=== PATIENT | female | born 1990 | race Hispanic/Latino ===

== ENCOUNTER 2024-07-15 08:02 | Emergency (ER) | payer SELFPAY ==
[2024-07-15] MEDS ORDERED: NA CHLORIDE 0.9% 1,000 ML ONE (08:27)
[2024-07-15 08:38] LABS: Absolute Lymphocytes (CBC) 1.3 K/uL (0.7-4.9); Absolute Monocytes 0.4 K/uL (0.1-1.3); Absolute Neutrophil 4.7 K/uL (1.8-8.0); Basophils % 0.7 % (0-1.3); Eosinophils % 0.6 % (0-4.4); Hematocrit 32.4 % (36.0-45.0); Hemoglobin 10.5 g/dL (12.0-15.0); Lymphocytes % 20.7 % (15.3-44.8); MCH 24.3 pg (27.0-35.0); MCHC 32.4 g/dL (32.0-36.0); MPV 7.6 fL (7.6-11.3); Monocytes % 5.9 % (3.3-12.3); Neutrophils % 72.1 % (41.7-73.7); Platelets 324 thou/uL (152-406); RBC Red Blood Cell Count 4.32 M/uL (3.86-4.86); Red Cell Distribution Width 17.3 % (12.1-15.2)
[2024-07-15 08:41] LABS: Specific Gravity 1.029 (1.005-1.030)
[2024-07-15 08:43] LABS: Specific Gravity 1.029 (1.005-1.030); Urine Bacteria <20 /HPF (<20); Urine Bilirubin NEGATIVE (Negative); Urine Blood 1+ (Negative); Urine Clarity Extremely Turbid (Clear); Urine Color Yellow (Yellow); Urine Culture Reflex Order REFLEXED; Urine Glucose NEGATIVE (Negative); Urine Ketones 1+ (Negative); Urine Microscopic Reflex YN ORDER UMIC; Urine Mucus 4+ /HPF (None Seen); Urine Nitrite NEGATIVE (Negative); Urine Protein TRACE (Negative); Urine Urobilinogen Normal (Normal); Urine WBC 20-50 /HPF (<5)
[2024-07-15 09:04] LABS: Albumin 3.6 g/dL (3.4-5.0); Albumin/Globulin Ratio 0.8 (1.1-1.8); Anion Gap 8.1 mEq/L (5.0-15.0); Bilirubin Total 0.6 mg/dL (0.2-1.0); Globulin 4.5 g/dL (2.3-3.5); Potassium 3.1 mEq/L (3.5-5.1); Protein, Total 8.1 g/dL (6.4-8.2)
--- NOTE | 2024-07-15 09:09 | RAD REPORT ---
EXAMINATION: Transvaginal OB COMPARISON: None. HISTORY: h/o torsion; possible TECHNIQUE: Real-time ultrasound was performed through the pelvis. A transvaginal scan was performed t o better visualize the intrauterine contents and adnexa. FINDINGS: The uterus is normal in size measuring 8.7 x 5.6 x 4.4 cm. Endometrial thickness is 10 mm, normal. No IUP is evident. Right ovary measures 5.8 x 3.8 cm with normal blood flow. Right ovarian cyst measuring 4 cm is presen t, benign in appearance. Left ovary measures 2.7 x 1.6 cm with normal blood flow. IMPRESSION: No evidence of IUP. In the setting of a positive hCG level, this would indicate of unknown location. Serial hCG level measurements and follow-up pelvic sonography in 7-10 days would be recommended. 4 cm right ovarian cyst, likely physiologic. Follow-up pelvic sonogram may be considered in 6-8 weeks .
--- NOTE | 2024-07-15 09:13 | EDPHYS ---
Physician Documentation [facility] Name: Katie Correa Age: 33 yrs Sex: Female : 1990 Arrival Date: 07/15/2024 Time: 08:02 Bed 19 Private MD: ED Physician Andrei Lau HPI: 07/15 08:29 This 33 yrs old Female presents to ER via Ambulatory with complaints of sp3 Abdominal Pain, Vaginal Bleeding. 08:29 33-year-old female with history of ovarian torsion with successful detorsion seen at 2 presents to the ED with lower abdominal pain, vaginal bleeding and faint positive test in March and May but not now, as well as GI/diarrhea type symptoms. She denies concerns of potential STI from long-term significant other. They do have intercourse without protection due to sterility diagnosis of her partner. Currently she denies headache, neck pain, fever, chest pain, shortness of breath, rash, bleeding anywhere else, or any other signs or symptoms on ROS at this time.. 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 - Infectious Disease History:: Denies. - Social history:: Smoking status: Patient denies any tobacco usage or history of. ROS: 08:30 Constitutional: Negative for fever, chills, and weight loss, Eyes: Negative for injury, sp3 pain, redness, and discharge, ENT: Negative for injury, pain, and discharge, Neck: Negative for injury, pain, and swelling, Cardiovascular: Negative for chest pain, palpitations, and edema, Respiratory: Negative for shortness of breath, cough, wheezing, and pleuritic chest pain, Back: Negative for injury and pain, MS/Extremity: Negative for injury and deformity, Skin: Negative for injury, rash, and discoloration, Neuro: Negative for headache, weakness, numbness, tingling, and seizure, Psych: Negative for depression, anxiety, suicide ideation, homicidal ideation, and hallucinations, Allergy/Immunology: Negative for hives, rash, and allergies, Endocrine: Negative for neck swelling, polydipsia, polyuria, polyphagia, and marked weight changes, Hematologic/Lymphatic: Negative for swollen nodes, abnormal bleeding, and unusual bruising, 08:30 All other systems are negative, Exam: 08:31 Constitutional: This is a well developed, well nourished patient who is awake, alert, sp3 and in no acute distress. Head/Face: Normocephalic, atraumatic. Eyes: Pupils equal round and reactive to light, extra-ocular motions intact. Lids and lashes normal. Conjunctiva and sclera are non-icteric and not injected. Cornea within normal limits. Periorbital areas with no swelling, redness, or edema. Neck: Trachea midline, no thyromegaly or masses palpated, and no cervical lymphadenopathy. Supple, full range of motion without nuchal rigidity, or vertebral point tenderness. No Meningismus. Chest/axilla: Normal chest wall appearance and motion. Nontender with no deformity. No lesions are appreciated. Cardiovascular: Regular rate and rhythm with a normal S1 and S2. No gallops, murmurs, or rubs. Normal PMI, no JVD. No pulse deficits. Respiratory: Lungs have equal breath sounds bilaterally, clear to auscultation and percussion. No rales, rhonchi or wheezes noted. No increased work of breathing, no retractions or nasal flaring. Back: No spinal tenderness. No costovertebral tenderness. Full range of motion. Skin: Warm, dry with normal turgor. Normal color with no rashes, no lesions, and no evidence of cellulitis. MS/ Extremity: Pulses equal, no cyanosis. Neurovascular intact. Full, normal range of motion. Neuro: Awake and alert, GCS 15, oriented to person, place, time, and situation. Cranial nerves II-XII grossly intact. Motor strength 5/5 in all extremities. Sensory grossly intact. Cerebellar exam normal. Normal gait. Psych: Awake, alert, with orientation to person, place and time. Behavior, mood, and affect are within normal limits. 08:31 Abdomen/GI: Mild lower abdominal pain to palpation without peritoneal signs, rebound or guarding., 08:31 : Current vaginal bleeding consistent with menses. Vital signs are stable., Vital Signs: 08:13 BP 119 / 69; Pulse 69; Resp 16 S; Pulse Ox 100% on R/A; Weight 63.5 kg; Height 5 ft. 2 kc6 in. (R); Pain 6/10; 08:13 Body Mass Index 25.61 (63.50 kg, 157.48 cm) kc6 08:13 Pain Scale: Adult kc6 MDM: 08:11 Medical Screening Exam initiated sp3 08:32 Data reviewed: vital signs, nurses notes, lab test result(s), radiologic studies. ED sp3 course: 33-year-old female with lower abdominal pain and vaginal bleeding. Differential diagnosis includes potential , miscarriage, menses, other GI pathology, ovarian pathology, among others. I am not highly suspicious of vascular pathology, sepsis, shock or any other critical process. Workup will include general labs including hCG, ultrasound transvaginal to differentiate. Disposition pending workup and patient course.. 09:11 ED course: hCG quant at 10. Patient likely had early and miscarriage. Urine sp3 is also dirty and we will treat with antibiotic. Follow-up with OB.. 07/15 08:11 Order name: CBC with Diff; Complete Time: 08:58 sp3 07/15 08:11 Order name: CMP; Complete Time: 09:11 sp3 07/15 08:11 Order name: Lipase; Complete Time: 09:11 sp3 07/15 08:11 Order name: Test, Urine; Complete Time: 08:58 sp3 07/15 08:11 Order name: Urinalysis w/ reflexes; Complete Time: 08:58 sp3 07/15 08:39 Order name: HCG, Quantitative; Complete Time: 09:11 EDMS 07/15 08:46 Order name: Urine Culture EDMS 07/15 08:25 Order name: US Transvaginal Ob; Complete Time: 09:11 sp3 07/15 08:11 Order name: IV Saline Lock; Complete Time: 08:27 sp3 07/15 08:11 Order name: Labs collected and sent; Complete Time: 08:27 sp3 Administered Medications: 08:34 Drug: NS 0.9% IV 1000 ml IV at 1 bolus Per protocol; to be given as a bolus over 60 kc6 minutes Route: IV; Rate: 1 bolus; Site: right antecubital; 09:20 Follow up: Response: No adverse reaction; IV Status: Completed infusion; IV Intake: kc6 500ml Disposition Summary: 07/15/24 09:12 Discharge Ordered Notes: Location: Home sp3 Condition: Stable sp3 Diagnosis - Miscarriage, spontaneous , UTI sp3 Followup: sp3 - With: Private Physician - When: Upon discharge from the Emergency Department - Reason: Continuance of care Discharge Instructions: - Discharge Summary Sheet sp3 - Miscarriage sp3 Forms: - Medication Reconciliation Form sp3 - Antibiotic Education sp3 - Prescription Opioid Use sp3 - Patient Portal Instructions sp3 - Leadership Thank You Letter sp3 Prescriptions: - Macrobid 100 mg Oral Capsule - take 1 capsule ORAL route every 12 hours for 7 days; 14 capsule; Refills: 0, sp3 Product Selection Permitted Signatures: Dispatcher [employer] EDAndrei Rodney MD MD sp3 Bernice Oreilly RN RN kc6 Corrections: (The following items were deleted from the chart) 08:37 08:26 QUANTITATIVE HCG+C.LAB.BRZ ordered. EDMS EDMS 08:58 08:28 TEST, SERUM+SC.LAB.BRZ ordered. EDMS EDMS
--- NOTE | 2024-07-15 09:13 | ER ---
Nurse's Notes [facility] Name: Katie Correa Age: 33 yrs Sex: Female : 1990 Arrival Date: 07/15/2024 Time: 08:02 Bed 19 Private MD: Diagnosis: Miscarriage, spontaneous , UTI Presentation: 07/15 08:13 Chief complaint: Patient states: she missed a period in mar., had a positive kc6 test but then started her period. reports LMP was x3 weeks ago but started with vaginal bleeding and cramping yesterday with another positive UPT. Coronavirus screen: At this time, the client does not indicate any symptoms associated with coronavirus-19. Ebola Screen: No symptoms or risks identified at this time. Initial Sepsis Screen: Does the patient meet any 2 criteria? No. Patient's initial sepsis screen is negative. Does the patient have a suspected source of infection? No. Patient's initial sepsis screen is negative. Risk Assessment: Do you want to hurt yourself or someone else? Patient reports no desire to harm self or others. Onset of symptoms was July 15, 2024. 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 - Infectious Disease History:: Denies. - Social history:: Smoking status: Patient denies any tobacco usage or history of. Screenin:16 [facility] ED Fall Risk Assessment (Adult) History of falling in the last 3 months, kc6 including since admission No falls in past 3 months (0 pts) Confusion or Disorientation No (0 pts) Intoxicated or Sedated No (0 pts) Impaired Gait No (0 pts) Mobility Assist Device Used No (0 pt) Altered Elimination No (0 pt) Score/Fall Risk Level 0 - 2 = Low Risk Oriented to surroundings, Maintained a safe environment, Educated pt \T\ family on fall prevention, incl call for assistance when getting out of bed. Abuse screen: Denies threats or abuse. Denies injuries from another. Nutritional screening: No deficits noted. Tuberculosis screening: No symptoms or risk factors identified. Assessment: 08:34 General: Appears in no apparent distress. comfortable, well groomed, well developed, kc6 Behavior is calm, cooperative, appropriate for age. Pain: Complains of pain in pelvis Pain does not radiate. Pain currently is 6 out of 10 on a pain scale. Quality of pain is described as crampy, dull, heavy, pressure, Pain began 1 day ago. Is continuous, Noted to be crying, quiet/stoic. Neuro: Level of Consciousness is awake, alert, obeys commands, Oriented to person, place, time, situation, Appropriate for age. Cardiovascular: Capillary refill < 3 seconds. Respiratory: Airway is patent Trachea midline Respiratory effort is even, unlabored, Respiratory pattern is regular, symmetrical. GI: Abdomen is flat, non-distended, Bowel sounds present X 4 quads. Abd is soft X 4 quads Abdomen is tender to palpation in suprapubic area. : Reports cramping, discharge, from vagina that is bloody, watery, pain in suprapubic area vaginal bleeding that is bright red, light flow. EENT: No signs and/or symptoms were reported regarding the EENT system. Derm: No signs and/or symptoms reported regarding the dermatologic system. Skin is intact, is healthy with good turgor, Skin is pink, warm \T\ dry. Musculoskeletal: No signs and/or symptoms reported regarding the musculoskeletal system. Circulation, motion, and sensation intact. Range of motion: intact in all extremities. 09:20 Reassessment: Patient appears in no apparent distress at this time. No changes from kc6 previously documented assessment. Patient and/or family updated on plan of care and expected duration. Pain level reassessed. Patient is alert, oriented x 3, equal unlabored respirations, skin warm/dry/pink. Vital Signs: 08:13 BP 119 / 69; Pulse 69; Resp 16 S; Pulse Ox 100% on R/A; Weight 63.5 kg; Height 5 ft. 2 kc6 in. (R); Pain 6/10; 08:13 Body Mass Index 25.61 (63.50 kg, 157.48 cm) [facility] 08:13 Pain Scale: Adult kc6 ED Course: 08:05 Patient arrived in ED. mr 08:11 Andrei Lau MD is Attending Physician. sp3 08:13 Bernice Oreilly, RN is Primary Nurse. kc6 08:15 Triage completed. kc6 08:15 Arm band placed on. kc6 08:16 Patient has correct armband on for positive identification. Bed in low position. Call kc6 light in reach. Side rails up X 1. Pulse ox on. NIBP on. Door closed. Noise minimized. Lights dimmed. Pillow given. 08:16 Patient maintains SpO2 saturation greater than 95% on room air. kc6 08:28 Initial lab(s) drawn, by ga, sent to lab. Urine collected: clean catch specimen, clear. kc6 Inserted saline lock: 20 gauge in right antecubital area, using aseptic technique. Blood collected. Flushed with 10 mL NS. 08:50 Transvaginal Ob In Process Unspecified. EDMO 09:20 Provided Education on: f/u with OBGYN/gyno. kc6 09:20 No provider procedures requiring assistance completed. IV discontinued, intact, kc6 bleeding controlled, No redness/swelling at site. Pressure dressing applied. Administered Medications: 08:34 Drug: NS 0.9% IV 1000 ml IV at 1 bolus Per protocol; to be given as a bolus over 60 kc6 minutes Route: IV; Rate: 1 bolus; Site: right antecubital; 09:20 Follow up: Response: No adverse reaction; IV Status: Completed infusion; IV Intake: kc6 500ml Medication: 09:21 VIS not applicable for this client. kc6 Intake: 09:20 IV: 500ml; Total: 500ml. kc6 Outcome: 09:12 Discharge ordered by . sp3 09:20 Discharged to home ambulatory, kc6 09:20 Condition: good 09:20 Discharge instructions given to patient, Instructed on discharge instructions, follow up and referral plans. medication usage, Demonstrated understanding of instructions, follow-up care, medications, Prescriptions given X 1, 09:21 Patient left the ED. kc6 Signatures: Dispatcher [employer] EDMO Mojgan Ellis, Reg Reg mr Andrei Lau MD MD sp3 Bernice Oreilly, RN RN kc6
[2024-07-16 02:49] VITALS: BP 119/69; O2SAT 100
== END 2024-07-15 09:21 | disposition home or self-care (01) ==
LOC: ER 08:02
DX: O03.9 Complete or unspecified spontaneous abortion without complication (principal); N39.0 Urinary tract infection, site not specified
CPT/HCPCS: 36415; 76817; 80053; 81001; 81025; 83690; 84702; 85025; 87077; 87086; 87088; 87186; 96360; 99284; J7030